=== PATIENT | female | born 1980 | race Caucasian/White ===

== ENCOUNTER 2017-04-15 16:56 | Emergency (ER) | payer MEDICAID ==
[~2017-04-15] VITALS: Ht 165.1 cm; Wt 65.0 kg
[2017-04-15 17:00] VITALS: BP 114/81
== END 2017-04-15 20:24 | disposition left against medical advice (07) ==
LOC: ER 17:00
DX: R51 Headache (principal); Z53.21 Procedure and treatment not carried out due to patient leaving prior to being seen by health care provider